=== PATIENT | female | born 1980 | race African-American/Black ===

== ENCOUNTER 2022-10-17 07:10 | Emergency (ER) | payer MEDICAID ==
[~2022-10-17] VITALS: Ht 162.6 cm; Wt 87.7 kg
[2022-10-17 08:25] VITALS: BP 165/96
[2022-10-17 08:42] LABS: Urine Bacteria FEW /hpf (None Seen); Urine Blood Negative /uL (Negative); Urine Mucus FEW (None Seen); Urine Specific Gravity 1.014 (1.001-1.035); Urine WBC 22 /hpf (0 - 5)
[2022-10-17] MEDS ORDERED: CIPR-173 PO (09:03)
[2022-10-17] MEDS ORDERED: IBUP800T27 PO (09:03)
== END 2022-10-17 09:09 | disposition home or self-care (01) ==
LOC: ER 07:13
DX: N39.0 Urinary tract infection, site not specified (principal); Z32.02 Encounter for pregnancy test, result negative
CPT/HCPCS: 81001; 81025

== ENCOUNTER 2022-11-08 07:48 | Emergency (ER) | payer MEDICAID ==
[~2022-11-08] VITALS: Ht 160 cm; Wt 84.3 kg
[~2022-11-08 07:48] MED LIST: CIPR-173 PO; IBUP800T27 PO
[2022-11-08 08:21] LABS: Basophils # (auto) 0.1 10 ^3/uL (0-0.2); Basophils % (auto) 0.9 % (0.0-2.0); Eosinophils # (auto) 0.1 10 ^3/uL (0-0.8); Eosinophils % (auto) 1.7 % (0.0-7.0); Hematocrit 37.3 % (36.0-46.0); Hemoglobin 12.9 g/dL (12.2-16.2); Lymphocytes # (auto) 3.4 10 ^3/uL (0.4-5.4); Lymphocytes % (auto) 53.8 % (10.0-50.0); Mean Corpuscular Hemoglobin 29.7 pg (28.0-32.0); Mean Corpuscular Hgb Conc. 34.6 g/dL (32.0-36.0); Mean Corpuscular Volume 85.7 fL (80.0-100.0); Monocytes # (auto) 0.5 10 ^3/uL (0-1.3); Monocytes % (auto) 7.7 % (0.0-12.0); Neutrophils # (auto) 2.3 10 ^3/uL (1.6-8.6); Neutrophils % (auto) 35.9 % (37.0-80.0); Nucleated Red Blood Cells % 1.2 %; Red Blood Cells 4.35 10^6/uL (4.0-5.20); Red Cell Distribution Width 14.3 % (11.8-14.3); White Blood Cell 6.3 10^3/uL (4.4-10.8)
[2022-11-08 08:36] LABS: Potassium 3.4 mmol/L (3.5-5.1)
[2022-11-08 08:36] LABS: Urine Bacteria NONE SEEN /hpf (None Seen); Urine Blood Negative /uL (Negative); Urine Mucus FEW (None Seen); Urine Specific Gravity 1.014 (1.001-1.035); Urine WBC 80 /hpf (0 - 5)
[2022-11-08 08:39] LABS: BUN/Creatinine Ratio 13.8; Bilirubin, Total 0.4 mg/dL (0.2-1.0); Total Protein 7.3 g/dL (6.4-8.2)
[2022-11-08] MEDS ORDERED: cefTRIAXone 1GM/50ML D5W 50 ML IV ONE (09:00)
[2022-11-08] MEDS ORDERED: CEPH-322 PO (10:50)
[2022-11-08 10:54] VITALS: BP 177/94
== END 2022-11-08 11:20 | disposition home or self-care (01) ==
LOC: ER 07:48
DX: N39.0 Urinary tract infection, site not specified (principal); K43.9 Ventral hernia without obstruction or gangrene; E87.6 Hypokalemia; I10 Essential (primary) hypertension; Z32.02 Encounter for pregnancy test, result negative
CPT/HCPCS: 36415; 74176; 80053; 81001; 81025; 85025; 87086; 96374; 99284; J0696

== ENCOUNTER 2023-01-26 08:18 | Emergency (ER) | payer MEDICAID ==
[~2023-01-26] VITALS: Ht 160 cm; Wt 83.0 kg
[~2023-01-26 08:18] MED LIST changes: +CEPH-322 PO
[2023-01-26 08:50] VITALS: BP 164/93
[2023-01-26] MEDS ORDERED: IBUPROFEN 600 MG TAB PO ONE (09:15)
[2023-01-26] MEDS ORDERED: IBUP600T28 PO (09:26)
[2023-01-26] MEDS ORDERED: AML5T PO (10:13)
== END 2023-01-26 10:08 | disposition home or self-care (01) ==
LOC: ER 08:18
DX: G43.909 Migraine, unspecified, not intractable, without status migrainosus (principal); I10 Essential (primary) hypertension; Z90.49 Acquired absence of other specified parts of digestive tract; Z98.890 Other specified postprocedural states
CPT/HCPCS: 70450